=== PATIENT | female | born 1990 | race Caucasian/White ===

== ENCOUNTER → 2017-03-23 | Outpatient (CLI) | payer BC | END | disposition home or self-care (01) | LOC: LABWHC1 13:07 | PROVIDERS: ATTEND Physician Assistant Medical | DX: Z01.84 Encounter for antibody response examination (principal) | CPT/HCPCS: 36415 ==

== ENCOUNTER → 2022-01-09 | Outpatient (CLI) | payer OTHER ==
--- NOTE | 2022-01-09 16:30 | CT ---
EXAMINATION TYPE: CT foot RT wo con DATE OF EXAM: 01/09/2022 COMPARISON: Unavailable HISTORY: rt foot pain after being stepped on by horse CT DLP: 195 mGycm Automated exposure control for dose reduction was used. TECHNIQUE: Multiplanar CT scan of the right foot without IV contrast administration. 3-D reconstructi on images were generated on an independent workstation and reviewed. FINDINGS: No definite acute fracture line identified. No gross lytic or sclerotic bone lesion. Tiny osteophytosis of the first metatarsal head. Mild soft tissue swelling of the dorsum of the foot. No sizable ankle joint effusion. IMPRESSION: No definite acute fracture line identified. Incidental findings as described above.
== END | disposition home or self-care (01) ==
LOC: RADCTMAIN 15:05
PROVIDERS: ATTEND Family Medicine
DX: M79.671 Pain in right foot (principal); W55.12XA Struck by horse, initial encounter